=== PATIENT | female | born 1975 | race Caucasian/White ===

== ENCOUNTER 2016-11-24 08:44 | Emergency (ER) | payer MEDICARE ==
[2016-11-24 09:29] LABS: HEMOGLOBIN 13.8 gm/dl (12.3-15.3); RED BLOOD COUNT 4.57 M/UL (4.00-5.10); WHITE BLOOD COUNT 16.8 K/UL (4.5-11.0)
== END 2016-11-24 09:47 | disposition short-term general hospital (02) ==
LOC: ER1 08:44
PROVIDERS: Emergency Medicine
DX: S32.512A Fracture of superior rim of left pubis, initial encounter for closed fracture (principal); F17.200 Nicotine dependence, unspecified, uncomplicated; V89.2XXA Person injured in unspecified motor-vehicle accident, traffic, initial encounter; Y93.89 Activity, other specified; Y92.410 Unspecified street and highway as the place of occurrence of the external cause
CPT/HCPCS: 36415; 71010; 73502; 80307; 81001; 85025; 85610; 85730; 86900; 86901; 96374; 96375; 99285; J2270; J2405; J7030